=== PATIENT | female | born 1985 | race Caucasian/White ===

== ENCOUNTER 2016-06-22 09:41 | Emergency (ER) | payer SELFPAY ==
[~2016-06-22] VITALS: Ht 162.6 cm; Wt 82.0 kg
[~2016-06-22 09:41] MED LIST: AMOX500T PO; Z.0.NO CURRENT MEDS
[2016-06-22 09:46] VITALS: BP 112/70; PULSE 73; RESP 16; TEMP 98.6; O2SAT 100
[2016-06-22 10:05] VITALS: O2SAT 98
--- NOTE | 2016-06-22 10:07 | PD ---
HPI Chief Complaint: Dizziness Time Seen by Provider: 09:56 Travel History International Travel<30 days: No Contact w/Intl Traveler<30days: No Traveled to known affect area: No History of Present Illness HPI 31-year-old female here for evaluation of lightheadedness/dizziness/pressure in her left ear. Symptoms have been going on for last week, worse when she wakes up in the morning. She also feels that if she moves too quickly she feels as though she is spinning. She states that about a week and a half ago she had cough and upper respiratory symptoms which resolved about a week ago. No vomiting or diarrhea. No abdominal pain. No urinary symptoms. No paresthesias or motor deficits. PFSH Past Medical History Medical History: Denies Significant Hx Diminished Hearing: No Influenza Vaccination: No ?: Not LMP: 06/19/16 Past Surgical History Surgical History: No Previous Surgery Social History Alcohol Use: No Tobacco Use: Yes (1PPD) Substance Use: No Allergies-Medications (Allergen,Severity, Reaction): Coded Allergies: No Known Allergies (Verified , 06/22/16) Reported Meds & Prescriptions Reported Meds & Active Scripts Active No Active Prescriptions or Reported Medications Review of Systems Except as stated in HPI: all other systems reviewed are Neg Physical Exam Narrative GENERAL: Well-developed, well-nourished, comfortable, no acute distress. SKIN: Warm and dry. No rash. HEAD: Atraumatic. Normocephalic. EYES: Pupils equal, round, 3 mm, reactive to light. EOMI. No scleral icterus. No injection or drainage. ENT: No nasal bleeding or discharge. Mucous membranes pink and moist. Bilateral external auditory canals are normal. There is cerumen impaction in bilateral external auditory canals. I'm unable to visualize the tympanic membranes bilaterally. Pharynx with mild erythema without exudates. NECK: Trachea midline. No JVD. No nuchal rigidity. CARDIOVASCULAR: Regular rate and rhythm. No murmur appreciated. RESPIRATORY: No accessory muscle use. Clear to auscultation. Breath sounds equal bilaterally. GASTROINTESTINAL: Abdomen soft, non-tender, nondistended. MUSCULOSKELETAL: No obvious deformities. No clubbing. No cyanosis. No edema. NEUROLOGICAL: Awake and alert. No obvious cranial nerve deficits. Motor grossly within normal limits. Normal speech. No focal deficits. PSYCHIATRIC: Appropriate mood and affect; insight and judgment normal. Data Data Last Documented VS Vital Signs Date Time Temp Pulse Resp B/P Pulse Ox O2 Delivery O2 Flow Rate FiO2 06/22/16 10:05 98 Room Air 06/22/16 09:46 98.6 73 16 112/70 Orders Basic Metabolic Panel (Bmp) (06/22/16 10:03) Complete Blood Count With Diff (06/22/16 10:03) Urinalysis - C+S If Indicated (06/22/16 10:03) Iv Access Insert/Monitor (06/22/16 10:03) Ecg Monitoring (06/22/16 10:03) Oximetry (06/22/16 10:03) Sodium Chloride 0.9% Flush (Ns Flush) (06/22/16 10:15) Ed Urine Pregnancytest Poc (06/22/16 10:03) Influenzae A/B Antigen (06/22/16 10:03) Group A Rapid Strep Screen (06/22/16 10:03) Ear Irrigation (06/22/16 10:03) Strep Culture (Group A) (06/22/16 10:12) Ct Brain W/O Iv Contrast(Rout) (06/22/16 ) Labs Laboratory Tests Test 06/22/16 06/22/16 10:10 10:18 Urine Collection Type CLEAN CATCH Urine Color YELLOW Urine Turbidity SLIGHT Urine pH 6.0 Urine Specific [place] 1.023 Urine Protein NEG mg/dL Urine Glucose (UA) NEG mg/dL Urine Ketones NEG mg/dL Urine Occult Blood TRACE Urine Nitrite NEG Urine Bilirubin NEG Urine Leukocyte Esterase NEG Urine RBC 4-9 /hpf Urine Squamous Epithelial 6-8 /hpf Cells Urine Amorphous Sediment MOD Urine Bacteria FEW /hpf Microscopic Urinalysis Comment CULT NOT INDICATED Urine Collection Time 1010 White Blood Count 8.5 TH/MM3 Red Blood Count 4.44 MIL/MM3 Hemoglobin 12.5 GM/DL Hematocrit 37.3 % Mean Corpuscular Volume 84.2 FL Mean Corpuscular Hemoglobin 28.2 PG Mean Corpuscular Hemoglobin 33.5 % Concent Red Cell Distribution Width 12.3 % Platelet Count 279 TH/MM3 Mean Platelet Volume 8.7 FL Neutrophils (%) (Auto) 71.3 % Lymphocytes (%) (Auto) 20.9 % Monocytes (%) (Auto) 5.7 % Eosinophils (%) (Auto) 1.6 % Basophils (%) (Auto) 0.5 % Neutrophils # (Auto) 6.1 TH/MM3 Lymphocytes # (Auto) 1.8 TH/MM3 Monocytes # (Auto) 0.5 TH/MM3 Eosinophils # (Auto) 0.1 TH/MM3 Basophils # (Auto) 0.0 TH/MM3 CBC Comment DIFF FINAL Differential Comment Sodium Level 143 MEQ/L Potassium Level 4.2 MEQ/L Chloride Level 108 MEQ/L Carbon Dioxide Level 27.5 MEQ/L Anion Gap 8 MEQ/L Blood Urea Nitrogen 14 MG/DL Creatinine 0.68 MG/DL Estimat Glomerular Filtration 100 ML/MIN Rate Random Glucose 95 MG/DL Calcium Level 8.7 MG/DL MDM Medical Decision Making Medical Screen Exam Complete: Yes Emergency Medical Condition: Yes Differential Diagnosis Cerumen impaction, vertigo, otitis media, viral illness, influenza, strep pharyngitis, intracranial abnormality less likely, UTI, , sinusitis Narrative Course Vital signs are within normal limits. CBC is unremarkable. BMP is unremarkable. UA is not suggestive of UTI. Influenza is negative. Group A strep is negative. Bilateral ear irrigation was performed by my tech. Significant amount of cerumen was removed bilaterally. Inspection of external auditory canals and tympanic membranes bilaterally are normal after irrigation. Patient reports significant improvement in hearing. She still feels kind of "fuzzy" and lightheaded. CT head will be ordered to rule out intracranial abnormality. CT head read as normal exam. I believe that the patient's symptoms were most likely secondary to bilateral cerumen impaction. She is neurologically intact. She is stable for discharge home with outpatient follow-up with a primary care physician this week. She was informed on when to return to the emergency department. She verbalizes understanding and agreement with plan. Diagnosis Primary Impression: Impacted cerumen of both ears Additional Impression: Lightheadedness Referrals: Primary Care Physician 3 days Additional Instructions: Follow-up with a primary care physician this week. Return to the emergency department for worsening symptoms or any other concerns. Scripts No Active Prescriptions or Reported Meds Disposition: 01 DISCHARGE HOME Condition: Stable Manjit Diaz MD Jun 22, 2016 10:06
[2016-06-22] MEDS ORDERED: SODIUM CHLORIDE 0.9% FLUSH 5 ML FLUSH IVF PRN (10:15)
[2016-06-22 10:24] LABS: AUTOMATED NEUTROPHIL # 6.1 TH/MM3 (1.8-7.7); BASOPHIL % 0.5 % (0.0-2.0); EOSINOPHIL # 0.1 TH/MM3 (0-0.4); EOSINOPHIL % 1.6 % (0.0-4.0); HEMATOCRIT 37.3 % (35.0-46.0); HEMO FLAGS DIFF FINAL; LYMPH % 20.9 % (9.0-44.0); LYMPHOCYTE # 1.8 TH/MM3 (1.0-4.8); MEAN CELL VOLUME 84.2 FL (80.0-100.0); MEAN CORPUSCULAR HEMOGLOBIN 28.2 PG (27.0-34.0); MEAN CORPUSCULAR HGB CONC 33.5 % (32.0-36.0); MONO % 5.7 % (0.0-8.0); NEUT % 71.3 % (16.0-70.0); PLATELET COUNT 279 TH/MM3 (150-450); RED BLOOD COUNT 4.44 MIL/MM3 (4.00-5.30); RED CELL DISTRIBUTION WIDTH 12.3 % (11.6-17.2); WHITE BLOOD COUNT 8.5 TH/MM3 (4.0-11.0)
[2016-06-22 10:27] LABS: BLOOD, URINE TRACE (NEG); GLUCOSE,URINE NEG (NEG); KETONE, URINE NEG (NEG); NITRITE,URINE NEG (NEG)
[2016-06-22 10:28] LABS: METHOD OF COLLECTION CLEAN CATCH; URINE COLOR YELLOW (YELLW/STRAW)
[2016-06-22 10:30] LABS: POTASSIUM 4.2 MEQ/L (3.5-5.1)
[2016-06-22 10:34] LABS: BICARBONATE 27.5 MEQ/L (21.0-32.0)
[2016-06-22 10:37] LABS: BACTERIA, URINE FEW /hpf; COMMENT (UR) CULT NOT INDICATED; COMMENT2 (UR) MUCOUS PRESENT; CULTURE IF INDICATED CULT NOT INDICATED
--- NOTE | 2016-06-22 11:23 | RADHPO ---
EXAM DATE/TIME: 06/22/2016 11:03 [facility] COMPARISON: No previous studies available for comparison. INDICATIONS : Dizziness and left ear pain for one week. RADIATION DOSE: 65.75 CTDIvol (mGy) MEDICAL HISTORY : None SURGICAL HISTORY : None. ENCOUNTER: Initial ACUITY: 1 week PAIN SCALE: 3/10 LOCATION: Left ear TECHNIQUE: Multiple contiguous axial images were obtained of the head. Using automated exposure control and adj ustment of the mA and/or kV according to patient size, radiation dose was kept as low as reasonably a chievable to obtain optimal diagnostic quality images. FINDINGS: CEREBRUM: The ventricles are normal for age. No evidence of midline shift, mass lesion, hemorrhage or acute in farction. No extra-axial fluid collections are seen. POSTERIOR FOSSA: The cerebellum and brainstem are intact. The 4th ventricle is midline. The cerebellopontine angle i s unremarkable. EXTRACRANIAL: The visualized portion of the orbits is intact. SKULL: The calvaria is intact. No evidence of skull fracture. CONCLUSION: Normal examination. Nas Christianson MD on June 22, 2016 at 11:21 Board Certified Radiologist. This report was verified electronically.
[2016-06-22 11:59] VITALS: BP 111/69
== END 2016-06-22 12:02 | disposition home or self-care (01) ==
LOC: PHED 09:41
DX: H61.23 Impacted cerumen, bilateral (principal); F17.210 Nicotine dependence, cigarettes, uncomplicated
CPT/HCPCS: 70450; 80048; 81001; 84703; 85025; 87081; 87804; 87880

== ENCOUNTER 2017-06-27 21:27 | Emergency (ER) | payer OTHER ==
[~2017-06-27] VITALS: Ht 165.1 cm; Wt 81.6 kg
[2017-06-27 21:34] VITALS: BP 124/50; PULSE 92; RESP 18; TEMP 98.4; O2SAT 100
[2017-06-27] MEDS ORDERED: SUBO8MIS SL ×2 (21:42)
--- NOTE | 2017-06-27 21:57 | PD ---
HPI Chief Complaint: Pain: Acute or Chronic Time Seen by Provider: 21:44 Travel History International Travel<30 days: No Contact w/Intl Traveler<30days: No Traveled to known affect area: No History of Present Illness HPI The patient's 32 years old. She was lifting boxes 2 days ago. Since then she's had low back pain which radiates to the front bilaterally. Initially it was not very severe however the past and half or so it's gotten much worse. She denies numbness tingling weakness and changes in bowel bladder habits. No falls or injury. No fever. No history of steroid use or diabetes. She reports a remote history of opiate addiction. She denies any current IV drug abuse. Ibuprofen was marginally beneficial at home. [facility] Past Medical History Medical History: Denies Significant Hx Diminished Hearing: No Immunizations Current: Yes Tetanus Vaccination: > 5 Years Influenza Vaccination: No ?: Not LMP: 06/13/17 : 2 Para: 2 Tubal Ligation: Yes Social History Alcohol Use: No Tobacco Use: Yes (1PPD) Substance Use: No (HX OF) Allergies-Medications (Allergen,Severity, Reaction): Coded Allergies: No Known Allergies (Verified Adverse Reaction, Unknown, 06/27/17) Reported Meds & Prescriptions Reported Meds & Active Scripts Active Reported Suboxone Sublingual Film (Buprenorphine-Naloxone Sublingual Film) 8-2 Mg Film 0.5 Film SL HS Unique ID number required: Suboxone Sublingual Film (Buprenorphine-Naloxone Sublingual Film) 8-2 Mg Film 1 Film SL AC BREAKFAST Unique ID number required: Review of Systems Except as stated in HPI: all other systems reviewed are Neg General / Constitutional: No: Fever Physical Exam Narrative GENERAL: 32-year-old female pleasant well-nourished well-developed SKIN: Warm and dry. HEAD: Atraumatic. Normocephalic. EYES: Pupils equal and round. No scleral icterus. No injection or drainage. ENT: No nasal bleeding or discharge. Mucous membranes pink and moist. NECK: Trachea midline. No JVD. CARDIOVASCULAR: Regular rate and rhythm. RESPIRATORY: No accessory muscle use. Clear to auscultation. Breath sounds equal bilaterally. GASTROINTESTINAL: Abdomen is soft. There is no focus of tenderness. MUSCULOSKELETAL: There is minimal paralumbar tenderness on exam. No focal spinal tenderness. There is no deformity without spine. NEUROLOGICAL: Awake and alert. No obvious cranial nerve deficits. Motor grossly within normal limits. Five out of 5 muscle strength in the arms and legs. Normal speech. PSYCHIATRIC: Appropriate mood and affect; insight and judgment normal. Data Data Last Documented VS Vital Signs Date Time Temp Pulse Resp B/P (MAP) Pulse Ox O2 Delivery O2 Flow Rate FiO2 06/27/17 22:20 06/27/17 21:51 90 18 06/27/17 21:34 98.4 100 Orders Orders Ed Discharge Order (06/27/17 21:57) Ketorolac Inj (Toradol Inj) (06/27/17 22:00) [facility] Medical Decision Making Medical Screen Exam Complete: Yes Emergency Medical Condition: Yes Medical Record Reviewed: Yes Differential Diagnosis Myofascial strain, epidural abscess, radiculopathic type pain Narrative Course Nature of today's pain is considered most likely to be benign in etiology. Patient advised to continue ibuprofen at home as needed. Diagnosis Primary Impression: Myofascial pain Med/Other Pt SpecificInfo: No Change to Meds Disposition: 01 DISCHARGE HOME Condition: Stable Jayme Chung MD Jun 27, 2017 21:57
[2017-06-27] MEDS ORDERED: KETOROLAC TROMETHAMINE 60 MG/2 ML (IM) VIAL IM ONE (22:00)
== END 2017-06-27 22:26 | disposition home or self-care (01) ==
LOC: PHED 21:27
DX: M79.1 Myalgia (principal); Z72.0 Tobacco use
CPT/HCPCS: 96372; 99284; J1885